=== PATIENT | male | born 1960 | race Caucasian/White ===

== ENCOUNTER 2020-02-17 14:44 | Emergency (ER) | payer BC ==
[2020-02-17] MEDS ORDERED: LIDOCAINE 2% URO-JET 5 ML KIT MM ONE (15:18)
--- NOTE | 2020-02-17 15:50 | ER Document Report ---
ED GI/ - General Chief Complaint: Urinary Retention Stated Complaint: URINARY PROBLEMS Time Seen by Provider: 02/17/20 15:16 Primary Care Provider: LEONARDO RILEY FNP [Primary Care Provider] - Follow up as needed Notes: CHIEF COMPLAINT: Acute urinary retention HPI: 59-year-old male with history of TURP done in [place] 1 month ago presenting for evaluation of urinary retention this morning. Patient is on HCTZ for blood pressure, did take his medication this morning. Was urinating well last night, states he was only able to dribble a little bit this morning and has had increasing suprapubic pressure throughout the day. He has not been able to void. Did not call his urologist prior to coming in today. Has not had a fever or otherwise been ill recently ROS: See HPI - all other systems were reviewed and are otherwise negative Constitutional: no fever Eyes: no drainage, no blurred vision ENT: no runny nose, no sore throat Cardiovascular: no chest pain Resp: no SOB, no cough GI: no vomiting, no diarrhea, + abdominal pain : no dysuria Integumentary: Positive wound Allergy: no hives Musculoskeletal: no extremity pain or swelling Neurological: no numbness/tingling, no weakness MEDICATIONS: I agree with the patient medications as charted by the RN. ALLERGIES: I agree with the allergies as charted by the RN. PAST MEDICAL HISTORY/PAST SURGICAL HISTORY: Reviewed and agree as charted by RN. SOCIAL HISTORY: Reviewed and agree as charted by RN. FAMILY HISTORY: No significant familial comorbid conditions directly related to patient complaint EXAM: Reviewed vital signs as charted by RN. CONSTITUTIONAL: Alert and oriented and responds appropriately to questions. Well-appearing; well-nourished, moderate distress secondary to discomfort HEAD: Normocephalic; atraumatic EYES: PERRL; Conjunctivae clear, sclerae non-icteric ENT: normal nose; no rhinorrhea; moist mucous membranes; pharynx without lesions noted, no uvula edema or deviation, no tonsillar hypertrophy, phonation normal NECK: Supple without meningismus; non-tender; no cervical lymphadenopathy, no masses CARD: RRR; no murmurs, no clicks, no rubs, no gallops; symmetric distal pulses RESP: Normal chest excursion without splinting or tachypnea; breath sounds clear and equal bilaterally; no wheezes, no rhonchi, no rales, pulse oximetry 95% on room air not hypoxic ABD/GI: Normal bowel sounds; moderate tenderness over the suprapubic region of the abdomen on palpation with mild distention, no rebound, no guarding; no palp able organomegaly or masses. BACK: The back appears normal and is non-tender to palpation, there is no CVA tenderness EXT: Normal ROM in all joints; non-tender to palpation; no cyanosis, no effusions, no edema SKIN: Normal color for age and race; warm; dry; good turgor; there is a granulating wound looks like surgical midline dehiscence from surgery. No surrounding erythema NEURO: Moves all extremities equally; Motor and sensory function intact PSYCH: The patient's mood and manner are appropriate. Grooming and personal hygiene are appropriate. MDM: 59-year-old male with acute urinary retention. Will place Tamayo catheter given his level of discomfort, plan to reassess. - Related Data Allergies/Adverse Reactions: Penicillins Allergy (Unknown, Verified 02/17/20 14:58) Past Medical History - Social History Smoking Status: Never Smoker Chew tobacco use (# tins/day): No Frequency of alcohol use: Heavy Drug Abuse: None Family History: Reviewed & Not Pertinent Patient has suicidal ideation: No Patient has homicidal ideation: No Physical Exam - Vital signs Vitals: Temp Pulse Resp BP Pulse Ox 97.8 F 98 18 183/106 H 100 02/17/20 14:48 02/17/20 14:48 02/17/20 14:48 02/17/20 14:48 02/17/20 14:48 Course - Re-evaluation Re-evalutation: 02/17/20 17:06 Patient feels much better after Tamayo catheter placement will switch to leg bag awaiting urinalysis. Patient follows with Dr. Read in [facility] will call their office tomorrow 02/17/20 17:[address] Long, attending, will place on Cipro until Urology follow up - Vital Signs Vital signs: Temp Pulse Resp BP Pulse Ox 97.8 F 98 18 183/106 H 100 02/17/20 14:48 02/17/20 14:48 02/17/20 14:48 02/17/20 14:48 02/17/20 14:48 - Laboratory Result Diagrams: 02/17/20 15:20 02/17/20 15:20 Laboratory results interpreted by me: 02/17/20 02/17/20 02/17/20 15:20 15:20 16:30 RBC 3.92 L Hgb 12.4 L Hct 36.5 L RDW 14.8 H Glucose 183 H Urine Protein 30 H Urine Blood MODERATE H Urine Urobilinogen 2.0 H Discharge - Discharge Clinical Impression: Acute urinary retention Condition: Stable Disposition: HOME, SELF-CARE Instructions: Tamayo Catheter Care ([facility]), Urinary Retention ([facility]) Additional Instructions: Follow-up with your urologist tomorrow by phone to discuss the urinary retention and Tamayo placement. Prescriptions: Ciprofloxacin HCl [Cipro 500 mg Tablet] 500 mg PO BID #14 tablet Referrals: LEONARDO RILEY FNP [Primary Care Provider] - Follow up as needed
[2020-02-17 15:59] LABS: ABSOLUTE BASOPHILS # (AUTO) 0.1 10^3/uL (0.0-0.2); ABSOLUTE EOSINOPHILS # (AUTO) 0.3 10^3/uL (0.0-0.6); ABSOLUTE LYMPHOCYTES (AUTO) 1.4 10^3/uL (0.5-4.7); ABSOLUTE MONOCYTES (AUTO) 0.6 10^3/uL (0.1-1.4); ABSOLUTE NEUT (AUTO) 5.5 10^3/uL (1.7-8.2); EOSINOPHILS % (AUTO) 4.4 % (0-6); HEMATOCRIT 36.5 % (37.9-51.0); HEMOGLOBIN 12.4 g/dL (13.5-17.0); LYMPHOCYTES % (AUTO) 17.4 % (13-45); MEAN CORPUSCULAR HEMOGLOBIN 31.7 pg (27.0-33.4); MEAN CORPUSCULAR HGB CONC 34.1 g/dL (32.0-36.0); MEAN CORPUSCULAR VOLUME 93 fl (80-97); MONOCYTES % (AUTO) 7.4 % (3-13); PLATELET COUNT 177 10^3/uL (150-450); RED BLOOD COUNT 3.92 10^6/uL (4.35-5.55); RED CELL DISTRIBUTION WIDTH 14.8 % (11.5-14.0); SEGMENTED NEUTROPHILS % (AUTO) 69.8 % (42-78); TOTAL CELLS COUNTED % (AUTO) 100 %; WHITE BLOOD COUNT 7.9 10^3/uL (4.0-10.5)
[2020-02-17 16:03] LABS: ANION GAP 8 (5-19); BLOOD UREA NITROGEN 17 mg/dL (7-20); CALCIUM 9.5 mg/dL (8.4-10.2); CARBON DIOXIDE 28 mmol/L (22-30); CHLORIDE 103 mmol/L (98-107); GLUCOSE 183 mg/dL (75-110); POTASSIUM 3.8 mmol/L (3.6-5.0)
[2020-02-17 17:05] LABS: APPEARANCE,URINE CLEAR; BILIRUBIN,URINE NEGATIVE (NEGATIVE); COLOR,URINE YELLOW; GLUCOSE, URINE NEGATIVE (NEGATIVE); KETONES,URINE NEGATIVE (NEGATIVE); LEUKOCYTE ESTERASE,URINE NEGATIVE (NEGATIVE); NITRITE,URINE NEGATIVE (NEGATIVE); PROTEIN,URINE 30 mg/dL (NEGATIVE); URINE SPECIFIC GRAVITY 1.014
[2020-02-17] MEDS ORDERED: CIPROFLOXACIN HCL 500 MG TABLET PO ONE (17:28)
[2020-02-17 18:33] VITALS: BP 152/78
== END 2020-02-17 18:33 | disposition home or self-care (01) ==
LOC: ER 14:44
DX: R33.9 Retention of urine, unspecified (principal); R10.9 Unspecified abdominal pain; I10 Essential (primary) hypertension; Z79.899 Other long term (current) drug therapy; Z90.79 Acquired absence of other genital organ(s); Z88.0 Allergy status to penicillin
CPT/HCPCS: 99283; 36415; 85025; 80048; 81001; J3490